=== PATIENT | female | born 1930 | race Caucasian/White ===

== ENCOUNTER 2018-06-24 07:05 | Emergency (ER) | payer MEDICARE, OTHER ==
[~2018-06-24] VITALS: Ht 160 cm; Wt 65.8 kg
[2018-06-24] MEDS ORDERED: [UNRECOGNIZED DRUG - REMARK] (07:25)
[2018-06-24] MEDS ORDERED: [UNRECOGNIZED DRUG - REMARK] (07:25)
[2018-06-24] MEDS ORDERED: [UNRECOGNIZED DRUG - REMARK] (07:25)
[2018-06-24] MEDS ORDERED: [UNRECOGNIZED DRUG - REMARK] (07:25)
[2018-06-24] MEDS ORDERED: [UNRECOGNIZED DRUG - REMARK] (07:25)
[2018-06-24] MEDS ORDERED: [UNRECOGNIZED DRUG - REMARK] (07:25)
[2018-06-24] MEDS ORDERED: [UNRECOGNIZED DRUG - REMARK] (07:25)
[2018-06-24] MEDS ORDERED: [UNRECOGNIZED DRUG - REMARK] ×2 (07:26→07:29)
[2018-06-24] MEDS ORDERED: [UNRECOGNIZED DRUG - REMARK] (07:26)
[2018-06-24] MEDS ORDERED: [UNRECOGNIZED DRUG - REMARK] (07:26)
[2018-06-24] MEDS ORDERED: [UNRECOGNIZED DRUG - REMARK] (07:26)
[2018-06-24] MEDS ORDERED: [UNRECOGNIZED DRUG - REMARK] (07:26)
[2018-06-24] MEDS ORDERED: [UNRECOGNIZED DRUG - REMARK] (07:26)
[2018-06-24] MEDS ORDERED: [UNRECOGNIZED DRUG - REMARK] (07:26)
[2018-06-24 07:29] LABS: BASOPHILS % (AUTO) 0.8 % (0.0-2.0); EOSINOPHILS # (AUTO) 0.1 K/uL (0.0-0.7); EOSINOPHILS % (AUTO) 1.4 % (0.0-7.0); HEMATOCRIT 41.6 % (31.2-41.9); HEMOGLOBIN 14.2 g/dL (10.9-14.3); LYMPHOCYTES # (AUTO) 2.3 K/uL (20.0-40.0); LYMPHOCYTES % (AUTO) 36.9 % (20.5-51.5); MEAN CORPUSCULAR HEMOGLOBIN 31.3 uug (24.7-32.8); MEAN CORPUSCULAR HGB CONC 34 g/dL (32.3-35.6); MEAN CORPUSCULAR VOLUME 91.2 fL (75.5-95.3); MONOCYTES # (AUTO) 0.5 K/uL (2.0-10.0); MONOCYTES % (AUTO) 8.8 % (0.0-11.0); NEUTROPHILS # (AUTO) 3.2 K/uL (1.8-8.9); NEUTROPHILS % (AUTO) 52.1 % (38.5-71.5); PLATELET COUNT (AUTO) 222 K/uL (179-408); RED BLOOD CELL COUNT(AUTO) 4.56 MIL/uL (3.63-4.92); WHITE BLOOD COUNT (AUTO) 6.1 K/uL (3.8-11.8)
[2018-06-24] MEDS ORDERED: [UNRECOGNIZED DRUG - REMARK] (07:29)
[2018-06-24] MEDS ORDERED: [UNRECOGNIZED DRUG - REMARK] (07:29)
[2018-06-24] MEDS ORDERED: [UNRECOGNIZED DRUG - REMARK] (07:29)
[2018-06-24] MEDS ORDERED: [UNRECOGNIZED DRUG - REMARK] (07:29)
[2018-06-24 07:39] LABS: CARBON DIOXIDE 29 mmol/L (21-32); CHLORIDE 99 mmol/L (98-107); CREATININE 0.9 mg/dL (0.6-1.3); GLUCOSE 94 mg/dL (74-106); POTASSIUM 4.2 mmol/L (3.5-5.1); UREA NITROGEN, BLOOD 18 mg/dL (7-18)
[2018-06-24 07:50] LABS: ALANINE AMINOTRANSFERASE 26 U/L (14-59); ALKALINE PHOSPHATASE 37 U/L (50-136); ASPARTATE AMINOTRANSFERASE 23 U/L (15-37); BILIRUBIN,DIRECT 0.1 mg/dL (0.0-0.2); BILIRUBIN,TOTAL 0.3 mg/dL (0.2-1.0); TOTAL PROTEIN, SERUM 6.7 g/dL (6.4-8.2)
[2018-06-24 08:53] LABS: *BILIRUBIN,URIN NEGATIVE (NEGATIVE); *BLOOD, URINE Trace-intact (NEGATIVE); *CLARITY,URINE CLEAR (CLEAR); *COLOR,URINE LIGHT YELLOW (YELLOW); *KETONES,URINE NEGATIVE (NEGATIVE); *PROTEIN,URINE NEGATIVE (NEGATIVE); *UROBILINOGEN,URINE 0.2 E.U./dl (NORMAL); LEUKOCYTE ESTERASE ,URINE NEGATIVE (NEGATIVE); NITRITE, URINE NEGATIVE (NEGATIVE); PH,URINE 7.5 (5.0-8.0); UGLUCOSE NEGATIVE (NEGATIVE)
[2018-06-24 08:59] LABS: RBC,URINE 0-3 /HPF (0-3); WBC,URINE 0-3 /HPF (0-3)
[2018-06-24 09:01] LABS: BACTERIA,URINE NONE SEEN /HPF (NONE SEEN); SQUAMOUS EPITHELIAL CELL,UR FEW /HPF (NONE SEEN)
--- NOTE | 2018-06-24 09:23 | NUR ---
Patient discharged to home in stable conditon. Written and verbal after care instructions given. Patient verbalizes understanding of instructions.pt walks in steady gait. pt with son.
[2018-06-24 09:25] VITALS: BP 143/71
== END 2018-06-24 09:26 | disposition home or self-care (01) ==
LOC: ER 07:05
DX: S06.9X9A Unspecified intracranial injury with loss of consciousness of unspecified duration, initial encounter (principal); M89.411 Other hypertrophic osteoarthropathy, right shoulder; M85.811 Other specified disorders of bone density and structure, right shoulder; G31.89 Other specified degenerative diseases of nervous system; M48.02 Spinal stenosis, cervical region; E78.5 Hyperlipidemia, unspecified; K21.9 Gastro-esophageal reflux disease without esophagitis; Z88.1 Allergy status to other antibiotic agents; Z88.6 Allergy status to analgesic agent; Z88.8 Allergy status to other drugs, medicaments and biological substances; W01.0XXA Fall on same level from slipping, tripping and stumbling without subsequent striking against object, initial encounter; Y93.89 Activity, other specified; Y92.89 Other specified places as the place of occurrence of the external cause; Y99.8 Other external cause status
CPT/HCPCS: 36415; 70030-TC; 70450; 71045; 72125; 73030; 85025; 85730; 93005; A4663

== ENCOUNTER 2020-12-15 13:25 | Emergency (ER) | payer MEDICARE, OTHER ==
[~2020-12-15] VITALS: Ht 157.5 cm; Wt 70.3 kg
[~2020-12-15 13:25] MED LIST: [UNRECOGNIZED DRUG - REMARK]; [UNRECOGNIZED DRUG - REMARK]; [UNRECOGNIZED DRUG - REMARK]; [UNRECOGNIZED DRUG - REMARK]; [UNRECOGNIZED DRUG - REMARK]; [UNRECOGNIZED DRUG - REMARK]; [UNRECOGNIZED DRUG - REMARK]; [UNRECOGNIZED DRUG - REMARK]; [UNRECOGNIZED DRUG - REMARK]; [UNRECOGNIZED DRUG - REMARK]; [UNRECOGNIZED DRUG - REMARK]; [UNRECOGNIZED DRUG - REMARK]; [UNRECOGNIZED DRUG - REMARK]; [UNRECOGNIZED DRUG - REMARK]; [UNRECOGNIZED DRUG - REMARK]; [UNRECOGNIZED DRUG - REMARK]; [UNRECOGNIZED DRUG - REMARK]; [UNRECOGNIZED DRUG - REMARK]
[2020-12-15] MEDS ORDERED: HYDROMORPHONE 1 MG/1 ML DISP.SYRIN IV ONE (13:45)
[2020-12-15] MEDS ORDERED: ONDANSETRON 4 MG/2 ML VIAL IV ONE (13:45)
[2020-12-15] MEDS ORDERED: HYDROMORPHONE 1 MG/1 ML DISP.SYRIN ONE (14:05)
[2020-12-15] MEDS ORDERED: ONDANSETRON 4 MG/2 ML VIAL ONE (14:05)
[2020-12-15 14:25] LABS: BASOPHILS % (AUTO) 0.5 % (0.0-2.0); EOSINOPHILS % (AUTO) 0.5 % (0.0-7.0); HEMOGLOBIN 14.3 g/dL (10.9-14.3); LYMPHOCYTES # (AUTO) 2.4 K/uL (20.0-40.0); LYMPHOCYTES % (AUTO) 25.7 % (20.5-51.5); MEAN CORPUSCULAR HEMOGLOBIN 30.5 uug (24.7-32.8); MEAN CORPUSCULAR HGB CONC 35 g/dL (32.3-35.6); MEAN CORPUSCULAR VOLUME 87.3 fL (75.5-95.3); MONOCYTES # (AUTO) 0.6 K/uL (2.0-10.0); MONOCYTES % (AUTO) 6.6 % (0.0-11.0); NEUTROPHILS # (AUTO) 6.2 K/uL (1.8-8.9); NEUTROPHILS % (AUTO) 66.7 % (38.5-71.5); PLATELET COUNT (AUTO) 251 K/uL (179-408); WHITE BLOOD COUNT (AUTO) 9.3 K/uL (3.8-11.8)
[2020-12-15 14:47] LABS: CREATININE 0.8 mg/dL (0.6-1.3); POTASSIUM 3.2 mmol/L (3.5-5.1)
[2020-12-15] MEDS ORDERED: SWABABLE VALVE TRANSFER SET EA MC ONE (14:59)
[2020-12-15] MEDS ORDERED: IOHEXOL 350 100 ML INFUS..BTL ONE (14:59)
[2020-12-15] MEDS ORDERED: IV NORMAL SALINE 250 ML IV ONE (14:59)
[2020-12-15 15:09] LABS: BILIRUBIN,DIRECT 0.2 mg/dL (0.0-0.2); BILIRUBIN,TOTAL 0.4 mg/dL (0.2-1.0); MAGNESIUM 1.9 mg/dL (1.8-2.4)
--- NOTE | 2020-12-15 15:10 | NUR ---
Pt's son signed consent for CTA.
--- NOTE | 2020-12-15 17:20 | NUR ---
O2 on room air is 94%, checked per MD request.
--- NOTE | 2020-12-15 17:27 | NUR ---
IV removed. Catheter intact and site benign. Pressure and 4x4 gauze applied to site. No bleeding noted.
--- NOTE | 2020-12-15 17:28 | NUR ---
Patient discharged to home in stable condition. Written and verbal after care instructions given to pt and pt's son. Patient and pt's verbalize understanding of instructions. Stressed follow up or return to ER for worsening s/s. Pt left Er w/ steady gait accompained by son.
[2020-12-15 17:31] VITALS: BP 140/67
== END 2020-12-15 17:32 | disposition home or self-care (01) ==
LOC: ER 13:25
DX: R07.89 Other chest pain (principal); S22.049A Unspecified fracture of fourth thoracic vertebra, initial encounter for closed fracture; W18.2XXA Fall in (into) shower or empty bathtub, initial encounter; Y93.E1 Activity, personal bathing and showering; Y92.031 Bathroom in apartment as the place of occurrence of the external cause; Y99.8 Other external cause status; R94.2 Abnormal results of pulmonary function studies; Z82.49 Family history of ischemic heart disease and other diseases of the circulatory system; J98.4 Other disorders of lung; R05 Cough; K21.9 Gastro-esophageal reflux disease without esophagitis; E78.5 Hyperlipidemia, unspecified; G89.4 Chronic pain syndrome; Z88.6 Allergy status to analgesic agent; Z88.0 Allergy status to penicillin; Z79.899 Other long term (current) drug therapy; Z20.822 Contact with and (suspected) exposure to COVID-19
CPT/HCPCS: 36415; 71045; 71275; 72072; 80048; 80076; 83735; 83880; 84484; 85025; 85730; 87426; 93005; 96374; 96375; 99285; J1170; J2405; Q9967; 70030-TC; A4663; J7050